=== PATIENT | male | born 1980 | race Asian ===

== ENCOUNTER 2022-11-10 09:36 | Emergency (ER) | payer OTHER ==
[~2022-11-10] VITALS: Ht 172.7 cm; Wt 70.3 kg
[2022-11-10 09:40] VITALS: BP_SYST 122; PULSE 99; RESP 18; TEMP 98
[2022-11-10] MEDS ORDERED: CYCL10TA24 PO (11:21)
[2022-11-10] MEDS ORDERED: IBUP-1968 PO (11:21)
[2022-11-10] MEDS ORDERED: ACET-2634 PO (11:21)
[2022-11-10] MEDS ORDERED: IBUPROFEN 600 MG TABLET PO ONE (11:30)
[2022-11-10] MEDS ORDERED: ACETAMINOPHEN 500 MG TABLET PO ONE (11:30)
[2022-11-10] MEDS: CYCLOBENZAPRINE HCL 10 MG TABLET (FLEXERIL) PO ONE ×2 (11:40→12:13)
[2022-11-10 11:45] VITALS: BP_SYST 118; PULSE 54; RESP 16; TEMP 97; O2SAT 100
== END 2022-11-10 11:36 | disposition home or self-care (01) ==
LOC: SED 09:36
DX: S16.1XXA Strain of muscle, fascia and tendon at neck level, initial encounter (principal); S39.012A Strain of muscle, fascia and tendon of lower back, initial encounter; S93.402A Sprain of unspecified ligament of left ankle, initial encounter; Z79.899 Other long term (current) drug therapy; V89.2XXA Person injured in unspecified motor-vehicle accident, traffic, initial encounter; Y93.89 Activity, other specified; Y92.89 Other specified places as the place of occurrence of the external cause; Y99.8 Other external cause status
CPT/HCPCS: 70450-TC; 72080-TC; 72125-TC; 76376; 99284